=== PATIENT | male | born 1960 | race Caucasian/White ===

== ENCOUNTER 2020-08-17 09:29 | Day surgery (SDC) | payer MEDICARE ==
--- NOTE | 2020-08-17 08:34 | HP ---
DATE OF SURGERY: 08/17/2020 HISTORY OF PRESENT ILLNESS: The patient is a 59 year old who has had infection in his left axilla. He has at least three separate areas question infected cyst area. He desires excision. PAST MEDICAL HISTORY: Chronic heart disease. Diabetes. Hypertension. Myocardial infarction. PAST SURGICAL HISTORY: Colonoscopy in the past. MEDICATIONS: Jardiance. Glimepiride. Metformin. Gabapentin. Lisinopril. Spironolactone. Tamsulosin. Carvedilol. Atorvastatin for hyperlipidemia. Fenofibrate. Furosemide. Humulin. ALLERGIES: NKDA. FAMILY HISTORY: Cancer, diabetes, heart disease. SOCIAL HISTORY: No smoking or alcohol abuse. REVIEW OF SYSTEMS: Fourteen systems reviewed pertinent for as noted above. No chest pain or palpitations. Other systems negative or noncontributory as above and per preadmission questionnaire. PHYSICAL EXAMINATION: GENERAL: No acute distress. HEENT: Sclerae nonicteric. NECK: No JVD. CHEST: Equal excursion, nonlabored breathing. CVS: Regular rate and rhythm. ABDOMEN: Soft. No peritoneal signs. EXTREMITIES: No cyanosis. In his left axilla he has at least three separate indurated areas consistent with infected cyst site. He said it has been going on for three to four weeks and has improved with some antibiotics. NEURO: Alert, oriented, moving extremities symmetrically. PSYCH: Appropriate mood and affect. IMPRESSION: Infected cyst site left axilla. I feel the patient will benefit from excisional biopsy, possible packing. Risks and benefits explained in detail including but not limited to bleeding or infection, risk of wound dehiscence possibly requiring packing, possibility if there is enough infection may need to leave some packing at the time of surgery, requiring healing by secondary intent and packing changes or pulling strips out gradually over time. General risk of anesthesia, deep venous thrombosis, pulmonary embolism or pneumonia. General risk of aches, pains, burning or numbness possibly penitentiary or chronic, possibility of what we excise once he heals the wound will not recur but could get similar infected nodule or cyst adjacent to or elsewhere on his body. He understands as well as general risk of anesthesia, deep venous thrombosis, pulmonary embolism, pneumonia, will proceed with excisional biopsy of multiple infected cyst sites left axilla with possible packing.
[~2020-08-17 09:29] MED LIST: Sensorcaine 0.25% 10 ML ONE
[2020-08-17] MEDS ORDERED: Lactated Ringers 1,000 ML IV SCH (10:00)
[2020-08-17] MEDS ORDERED: HUMULIN R SQ ONE (10:29)
[2020-08-17] MEDS ORDERED: SUBLIMAZE 100 MCG/2 ML ONE (12:11)
[2020-08-17] MEDS ORDERED: DIPRIVAN 200 MG/20 ML IV ONE (12:11)
[2020-08-17] MEDS ORDERED: Versed 2 MG/2 ML Injection ONE (12:11)
[2020-08-17] MEDS ORDERED: CLINDAMYCIN-D5W 900 MG/50 ML IV ONE (12:39)
[2020-08-17] MEDS ORDERED: PHENYLEPHRINE HCL ONE (12:46)
[2020-08-17] MEDS ORDERED: Sodium Chloride 0.9% 1000 ML 1,000 ML ONE (12:51)
[2020-08-17] MEDS ORDERED: Ephedrine Sulfate 50 MG/ML ONE (12:54)
[2020-08-17 14:18] VITALS: BP 141/90; PULSE 83; O2SAT 97
--- NOTE | 2020-08-18 10:42 | OP ---
SURGERY DATE/TIME: 08/17/2020 1211 PREOPERATIVE DIAGNOSIS: Multiple ruptured cyst sites left axilla. POSTOPERATIVE DIAGNOSIS: Multiple ruptured cyst sites left axilla. PROCEDURES: 1) Excisional biopsy of superior left axilla ruptured cyst site (approximately 5.5 cm with margins) two or three areas included en bloc in one excision. 2) Excisional biopsy of inferior left axilla ruptured cyst site (approximately 2 cm with margins). SURGEON: Dr. Sahil Soriano. ANESTHESIA: General. ESTIMATED BLOOD LOSS: Minimal. INDICATIONS: As noted above. Risks and benefits explained in detail and not limited to and consent obtained. DESCRIPTION OF PROCEDURE AND FINDINGS: The patient is taken to the operating room. General anesthesia induced. The site had been marked and confirmed with the patient in the preoperative holding area. He was taken to the operating room. General anesthesia induced. Prepped and draped in usual sterile fashion. After official time out and no disagreement with planned procedure, he had one area that had two indurated areas as well as a third one. It was felt this would be excised all en bloc as one single elliptical excision. Dissection carried down to the normal deep subcutaneous tissue beneath underneath indurated area where the ruptured cyst areas are. It was carefully passed off for pathology. Good hemostasis noted. The wound is closed with interrupted 3-0 Vicryl closing deep and superficial subcu down to the level of the underlying subcu and fascia. Skin closed with 4-0 Monocryl in running subcuticular fashion. 0.25% Marcaine local injected along the skin incision. Attention is then turned to the smaller area excising out to normal appearing, this is small area. The first area had been 5.5 cm with margins but the area probably 7 cm elliptical excision pattern. The second smaller area more inferiorly was carefully excised out to normal appearing skin around dissecting deep down to the indurated area and this ended up being about 2 cm with margins, passed off for pathology. Good hemostasis noted. The wound is closed with interrupted 3-0 Vicryl subcu. Skin closed with 4-0 Monocryl. 0.5% Marcaine local injected along the area. The patient was then dressed with some Dermabond-type glue and once that dried then pressure dressing. The patient tolerated the procedure well. There were no immediate complications. There was no family available here to discuss findings with at this time per this hospital's policy unlike all of the other facilities in the area.
== END 2020-08-17 14:30 | disposition home or self-care (01) ==
LOC: SDC 09:29
PROVIDERS: ATTEND Surgery
DX: L72.0 Epidermal cyst (principal); L72.8 Other follicular cysts of the skin and subcutaneous tissue; E11.9 Type 2 diabetes mellitus without complications; I10 Essential (primary) hypertension; Z79.899 Other long term (current) drug therapy
CPT/HCPCS: 82947; J1815; J2250; J2370; J2704; J3010